=== PATIENT | female | born 2000 | race Caucasian/White ===

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

== ENCOUNTER 2023-03-03 17:27 | Emergency (ER) | payer BC, SELFPAY ==
[2023-03-03 17:40] VITALS: BP 116/84; PULSE 80; RESP 18; TEMP 36.9; O2SAT 98; BMI 27.8
--- NOTE | 2023-03-03 17:45 | XR_ITS ---
PROCEDURE INFORMATION: Exam: XR Left Forearm Exam date and time: 03/03/2023 5:53 PM Age: 22 years old Clinical indication: Pain; Lower or forearm; Left; Additional info: Injured while wrestling with someone TECHNIQUE: Imaging protocol: Radiologic exam of the left forearm. Views: 2 views. COMPARISON: CR HANDL3 HAND-LT-3 VIEWS 04/12/2016 2:06 PM FINDINGS: Bones/joints: Bones appear intact and normally aligned with normal mineralization.No significant arthritic deformities. Soft tissues: Mild soft tissue edema.No radiopaque foreign bodies. No pathologic soft tissue calcification. IMPRESSION: 1. No acute fracture or dislocation. 2. Soft tissue swelling.
--- NOTE | 2023-03-03 17:57 | EXP.UTC ---
Discharge Plan Disposition Patient Disposition: Home, Self-Care Condition: Good Prescriptions Prescriptions: No Action Vyvanse 20 mg capsule 20 mg PO DAILY Saxenda 3 mg/0.5 mL (18 mg/3 mL) pen injector 3 mg SQ DAILY Referrals Follow up/Referrals: Rafat Biswas MD [Primary Care Provider] - See instructions Activity Restrictions/Add. Instructions Additional Instructions/Restrictions: *RICE, Rest the extremity, Ice 15-20 minutes 3-4 times daily, Compress- wear the gregg wrap as discussed as much as possible to help reduce swelling and pain, Elevate the extremity when at rest *Gregg wrap is for support and help control swelling, use it except in the shower. Be sure that is not to tight but not to loose either *Elevate when resting? *Ibuprofen 600-800mg every 6-8 hours as needed for pain an inflammation. If need something more can take Tylenol in between doses of Ibuprofen to help Immediately follow up with your family doctor for new or worsening of symptoms, or no noticeable improvement over the next 3-5 days Clinical Impressions Clinical Impression: Contusion of forearm Qualifiers: Encounter type: initial encounter Laterality: left Qualified Code(s): S50.12XA - Contusion of left forearm, initial encounter Instructions Patient Instructions: DI for Contusion, Contusion, How To Perform RICE (Rest, Ice, Compress, Elevate) Discharge ED Provider: Britni Mccauley [facility] General Stated complaint: Left shoulder pain no accident Mode of Arrival: Ambulatory Source of Information: Patient Limitations: No Limitations Time Seen by Provider: 03/03/23 17:58 Description of Symptoms (Recalled from Triage Doc. by RN): PATIENT C/O LEFT FOREARM PAIN. SHE STATES SHE AND A FRIEND WERE PLAYING AROUND LAST NIGHT AND SHE INJURED HER ARM HEENT Symptoms (Recalled from RN notes): No Resp Symptoms (Recalled from RN notes): No Skin Symptoms (Recalled from RN notes): No MS Symptoms (Recalled from RN notes): Yes Functional Status (Recalled from RN notes): WNL History of Present Illness Provider Complaint: Patient states that she and a friend was playing around wrestling and trading punches last night and she started having pain in her left forearm States that hurts to straighten it out and certain ways she moves it States that she has brusing to her upper arms but she isnt here for that that is from trading licks Related Data Home Medications Medication Instructions Recorded Confirmed liraglutide (weight loss) 3 mg/0.5 3 mg SQ DAILY Weight Loss 03/03/23 03/03/23 mL (18 mg/3 mL) subcut pen injector (Saxenda) lisdexamfetamine 20 mg capsule 20 mg PO DAILY Anxiety 03/03/23 03/03/23 (Vyvanse) Allergies Allergy/AdvReac Type Severity Reaction Status Date / Time No Known Allergies Allergy Verified 02/13/23 15:57 Worker's Comp Is this a Worker's Comp case?: No [facility] Disclaimer: The information contained in this section may have been updated after the patient was seen, as this information can be updated by other users. Medical History (Updated 03/03/23 @ 18:32 by Britni Mccauley APRN) Anxiety Attention Deficit Hyperactivity Disorder (ADHD) Obesity Social History Smoking Status: Never smoker alcohol intake: never current occupational status: employed Travel in the last 8 weeks: None ROS Obtained: Yes All systems reviewed & no additional complaints except as documented and Yes Systems reviewed as appropriate & no additional complaints except as documented Constitutional Constitutional: Reports system reviewed and no additional complaints, except as documented and Reports as per HPI ENT Ears, Nose, Mouth, and Throat: Reports system reviewed and no additional complaints, except as documented and Reports as per HPI Cardiovascular Cardiovascular: Reports system reviewed and no additional complaints, except as documented and Reports as per HPI
[2023-03-03 18:35] VITALS: BP 116/84; PULSE 80; RESP 18; TEMP 36.9; O2SAT 98
== END 2023-03-03 18:40 | disposition home or self-care (01) ==
PROVIDERS: Emergency Provider Nurse Practitioner; PCP Emergency Medicine
DX: S50.12XA Contusion of left forearm, initial encounter (principal); F90.9 Attention-deficit hyperactivity disorder, unspecified type; F41.9 Anxiety disorder, unspecified; E66.9 Obesity, unspecified; W50.0XXA Accidental hit or strike by another person, initial encounter
CPT/HCPCS: 73090; 99204; 99212; G0463

== ENCOUNTER 2023-03-24 11:23 | Emergency (ER) | payer BC, SELFPAY ==
[2023-03-24 11:45] VITALS: BP 134/66; PULSE 94; RESP 18; TEMP 37.4; O2SAT 97; BMI 28.1
--- NOTE | 2023-03-24 11:55 | EXP.UTC ---
Discharge Plan Disposition Patient Disposition: Home, Self-Care Condition: Good Prescriptions Prescriptions: New qyodbsnmuqgentj-lztmwygjn-MK [Bromfed DM] 2-30-10 mg/5 mL Syrup 5 ml PO Q6H PRN (Reason: Cough) Qty: 240 0RF ondansetron 4 mg Tablet,Disintegrating 4 mg PO Q8H PRN (Reason: Nausea) Qty: 12 0RF No Action lisdexamfetamine [Vyvanse] 20 mg capsule 20 mg PO DAILY Saxenda 3 mg/0.5 mL (18 mg/3 mL) pen injector 3 mg SQ DAILY Referrals Follow up/Referrals: Rafat Biswas MD [Primary Care Provider] - See instructions Activity Restrictions/Add. Instructions Additional Instructions/Restrictions: Drink plenty of fluids. Take tylenol or ibuprofen for pain or fever. Take the medications as directed. Follow up with your regular doctor. GO TO THE ER FOR ANY WORSENING SYMPTOMS Clinical Impressions Clinical Impression: Acute viral syndrome, Exposure to 2019 novel coronavirus Instructions Patient Instructions: DI for Viral Syndrome, Coronavirus Disease 2019, Preventing the Spread of Coronavirus Discharge Instructions Discharge ED Provider: Ruy Cabrera [facility] General Stated complaint: cough,sore throat,chills, body aches Time Seen by Provider: 03/24/23 11:55 History of Present Illness Provider Complaint: she states that for the past 2 days she has had nonproductive cough, sore throat, chills, and body aches. She has been exposed to covid-19. Related Data Home Medications Medication Instructions Recorded Confirmed liraglutide (weight loss) 3 mg/0.5 3 mg SQ DAILY Weight Loss 03/03/23 03/24/23 mL (18 mg/3 mL) subcut pen injector (Saxenda) lisdexamfetamine 20 mg capsule 20 mg PO DAILY Anxiety 03/03/23 03/24/23 (Vyvanse) Previous Rx's Medication Instructions Recorded hhwxxfywoyawkcv-zqsgzoaktdeieie-ZG 5 ml PO Q6H PRN Cough #240 mL 03/24/23 2 mg-30 mg-10 mg/5 mL oral syrup (Bromfed DM) ondansetron 4 mg disintegrating 4 mg PO Q8H PRN Nausea #12 tabs 09/10/23 tablet Allergies Allergy/AdvReac Type Severity Reaction Status Date / Time No Known Allergies Allergy Verified 03/24/23 12:03 [facility] Disclaimer: The information contained in this section may have been updated after the patient was seen, as this information can be updated by other users. Medical History (Updated 03/24/23 @ 12:14 by Ruy Cabrera APRN) Anxiety Attention Deficit Hyperactivity Disorder (ADHD) Obesity Social History Smoking Status: Never smoker alcohol intake: never current occupational status: employed Travel in the last 8 weeks: None ROS Obtained: Yes All systems reviewed & no additional complaints except as documented Constitutional Constitutional: Reports chills and Reports fever(s) Eyes Eyes: Denies eye discharge ENT Ears, Nose, Mouth, and Throat: Reports as per HPI Cardiovascular Cardiovascular: Denies chest pain Respiratory Respiratory: Denies chest congestion and Reports cough Gastrointestinal Gastrointestingal: Reports nausea; Denies abdominal pain, constipation, cramping, diarrhea or vomiting Musculoskeletal Musculoskeletal: Denies arthralgias Integumentary/Breasts Skin/Breast: Denies rash Neurologic Neurologic: Denies paresthesias Physical Exam General General appearance: alert and in no apparent distress Head Head exam: atraumatic, normocephalic and normal inspection Eye Eye exam: Present normal appearance, PERRL and EOMI ENT ENT exam: Present normal exam, normal oropharynx, mucous membranes moist, TM's normal bilaterally and normal external ear exam Neck Neck exam: Present normal inspection, full ROM and trachea midline; Absent meningismus or lymphadenopathy Chest Chest inspection: Present normal inspection and symmetric chest wall rise; Absent tenderness Respiratory Respiratory exam: Present normal lung sounds bilaterally; Absent respiratory distress Cardiovascular Cardiovascul
[2023-03-24 12:23] VITALS: BP 134/66; PULSE 94; RESP 18; TEMP 37.4; O2SAT 97
== END 2023-03-24 12:23 | disposition home or self-care (01) ==
PROVIDERS: Emergency Provider Nurse Practitioner Family; PCP Emergency Medicine
DX: J02.0 Streptococcal pharyngitis (principal); F41.9 Anxiety disorder, unspecified; F90.9 Attention-deficit hyperactivity disorder, unspecified type; E66.9 Obesity, unspecified
CPT/HCPCS: 99212; 99214; G0463

== ENCOUNTER 2023-07-17 14:52 | Outpatient (CLI) | payer BC, SELFPAY ==
[2023-07-17 19:25] LABS: Amphetamine/Metha Screen,Urine Positive ng/ml (<1000); Barbiturates Screen,Urine Negative ng/ml (<200); Benzodiazepines Screen,Urine Negative ng/ml (<200); Cannabinoid Screen,Urine Positive ng/ml (<50); Cocaine Screen,Urine Negative ng/ml (<300); Methadone Screen,Urine Negative ng/ml (<300); Opiate Screen,Urine Negative ng/ml (<300); Phencyclidine Screen,Urine Negative ng/ml (<25)
== END 2023-07-17 23:59 ==
LOC: LAB.DROPOF 14:53
PROVIDERS: PCP Physician Assistant; Visit Provider Physician Assistant
DX: F90.9 Attention-deficit hyperactivity disorder, unspecified type (principal)
CPT/HCPCS: 80307

== ENCOUNTER 2023-11-05 09:54 | Outpatient (POV) | payer BC, SELFPAY | END 2023-11-05 23:59 | disposition home or self-care (01) | LOC: SC 09:55 | PROVIDERS: PCP Physician Assistant; Visit Provider Dermatology | DX: Z00.00 Encounter for general adult medical examination without abnormal findings (principal) ==